=== PATIENT | male | born 1980 | race Caucasian/White ===

== ENCOUNTER 2018-01-19 10:56 | Emergency (ER) | payer BC, OTHER ==
--- NOTE | 2018-01-19 11:28 | EDM.PDOC ---
ED HPI GENERAL MEDICAL PROBLEM - General Chief Complaint: Respiratory Problem Stated Complaint: SOB Time Seen by Provider: 01/19/18 11:14 Source of Information: Reports: Patient History Limitations: Reports: No Limitations - History of Present Illness INITIAL COMMENTS - FREE TEXT/NARRATIVE: 37-year-old male presents for evaluation and treatment of chest tightness, shortness of breath and chest palpitations. First appreciated symptoms about 2 weeks ago. He states over the last week his symptoms have been worsening. He denies any current chest tightness now. He states he's only been getting tightness in his chest and shortness of breath with activity. 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 He is appreciated that when he is getting up and down off the ground that he feels the tightness, palpitations and shortness of breath. He describes hearing his heartbeat in his ears. He states he did feel little lightheaded today. He also feels that his arms and legs feel tired and weak. He denies any recent fevers, cough, ear pain, sore throat, nausea, vomiting, change in stool, dysuria, unintentional weight loss or weight gain, swelling in his legs or pruritus. He states he's had a little bit of a headache. 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 He does appreciate that his symptoms seem to be better at home but he is also not as active at home. He denies any recent travel. No primary care provider. Duration: Week(s): (2), Getting Worse Location: Reports: Chest - Related Data Allergies Allergy/AdvReac Type Severity Reaction Status Date / Time No Known Allergies Allergy Verified 01/19/18 11:14 Home Meds: Home Meds Ferrous Sulfate [Ferosul] 300 mg PO TID #600 ml 01/19/18 [Rx] Past Medical History - Past Health History Medical/Surgical History: Denies Medical/Surgical History Social & Family History - Family History Family Medical History: Noncontributory - Tobacco Use Smoking Status *Q: Never Smoker Second Hand Smoke Exposure: No - Caffeine Use Caffeine Use: Reports: Soda - Recreational Drug Use Recreational Drug Use: No ED ROS GENERAL - Review of Systems Review Of Systems: See Below Constitutional: Reports: Fatigue. Denies: Fever, Chills, Weight Loss, Weight Gain HEENT: Denies: Ear Pain, Throat Pain Respiratory: Reports: Shortness of Breath. Denies: Cough Cardiovascular: Reports: Chest Pain, Dyspnea on Exertion, Lightheadedness, Palpitations. Denies: Edema, Syncope Endocrine: Reports: Fatigue GI/Abdominal: Denies: Abdominal Pain, Diarrhea, Hematochezia, Melena, Nausea, Vomiting : Reports: No Symptoms. Denies: Dysuria Skin: Denies: Pruritis Neurological: Reports: Headache. Denies: Syncope Hematologic/Lymphatic: Denies: Swollen Glands ED EXAM, GENERAL - Physical Exam Exam: See Below Exam Limited By: No Limitations General Appearance: Alert, WD/WN, No Apparent Distress Eye Exam: Bilateral Eye: Normal Inspection Ears: Normal External Exam Ear Exam: Bilateral Ear: Other (TMs obscured by cerumen) Nose: Normal Inspection Throat/Mouth: Normal Inspection, Normal Lips, Normal Oropharynx, Normal Voice, No Airway Compromise Neck: Normal Inspection, Non-Tender, Full Range of Motion. No: Lymphadenopathy (L), Lymphadenopathy (R) Respiratory/Chest: No Respiratory Distress, Lungs Clear, Normal Breath Sounds Cardiovascular: Normal Peripheral Pulses, Regular Rate, Rhythm, No Murmur GI/Abdominal: Normal Bowel Sounds, Soft, Non-Tender Rectal (Males) Exam: Normal Exam, Heme - Stool, Hemorrhoids Neurological: Alert, Oriented, Normal Cognition Psychiatric: Normal Affect, Normal Mood Skin Exam: Warm, Dry, Pallor EKG INTERPRETATION EKG Date: 01/19/18 Time: 11:35 Rhythm: NSR Rate (Beats/Min): 90 Harriet: Normal P-Wave: Present QRS: Normal ST-T: Normal QT: Normal EKG Interpretation Comments: NSR at 90 bpm No acute changes. Reviewed by myself and Dr. Radha Florentino. Course - Vital Signs Last Recorded V/S: Last Vital Signs Temp 37.2 C 01/19/18 16:29 Pulse 85 01/19/18 16:01 Resp 20 01/19/18 16:29 BP 135/68 01/19/18 16:29 Pulse Ox 100 01/19/18 16:29 Orthostatic Blood Pressure [ 146/81 Standing] Orthostatic Blood Pressure [ 128/73 Supine] - Orders/Labs/Meds Labs: Laboratory Tests 01/19/18 01/19/18 01/19/18 Range/Units 11:39 11:39 11:39 WBC 4.43 (4.23-9.07) K/mm3 RBC 2.51 L (4.63-6.08) M/mm3 Hgb 4.4 L* (13.7-17.5) gm/L Hct 16.7 L (40.1-51.0) % MCV 66.5 L (79.0-92.2) fl MCH 17.5 L (25.7-32.2) pg MCHC 26.3 L (32.2-35.5) g/dl RDW Std Deviation 43.1 (35.1-43.9) fL Plt Count 246 (163-337) K/mm3 MPV 9.5 (9.4-12.3) fl Neutrophils % (Manual) 60 (40-60) % Band Neutrophils % 0 (0-10) % Lymphocytes % (Manual) 36 (20-40) % Atypical Lymphs % 0 % Monocytes % (Manual) 2 (2-10) % Eosinophils % (Manual) 0 L (0.8-7.0) % Basophils % (Manual) 2 H (0.2-1.2) Platelet Estimate Adequate Polychromasia 2+ moderate Hypochromasia 2+ moderate Poikilocytosis 1+ slight Anisocytosis 2+ moderate Microcytosis 2+ moderate Target Cells Few Tear Drop Cells Few Rouleaux 1+ slight RBC Morph Comment Not Reportable Sodium 142 (136-145) mEq/L Potassium 4.1 (3.5-5.1) mEq/L Chloride 108 H (98-107) mEq/L Carbon Dioxide 24 (21-32) mEq/L Anion Gap 14.1 (5-15) BUN 18 (7-18) mg/dL Creatinine 0.9 (0.7-1.3) mg/dL Est Cr Clr Drug Dosing 123.35 mL/min Estimated GFR (MDRD) > 60 (>60) mL/min BUN/Creatinine Ratio 20.0 H (14-18) Glucose 102 (74-106) mg/dL Calcium 9.1 (8.5-10.1) mg/dL Magnesium 1.9 (1.8-2.4) mg/dl Iron (65-175) ug/dL TIBC (100-400) ug/dL % Saturation (20-55) % Transferrin (202-364) mg/dL Ferritin (26-388) ng/ml Total Bilirubin 0.3 (0.2-1.0) mg/dL AST 15 (15-37) U/L ALT 16 (16-63) U/L Alkaline Phosphatase 67 (46-116) U/L Troponin I < 0.017 (0.00-0.056) ng/mL Total Protein 6.8 (6.4-8.2) g/dl Albumin 4.1 (3.4-5.0) g/dl Globulin 2.7 gm/dL Albumin/Globulin Ratio 1.5 (1-2) Vitamin B12 (193-986) pg/ml Folate (8.6-58.9) ng/mL TSH 3rd Generation 2.839 (0.358-3.74) uIU/mL Urine Color (Yellow) Urine Appearance (Clear) Urine pH (5.0-8.0) Ur Specific [place] (1.005-1.030) Urine Protein (Negative) Urine Glucose (UA) (Negative) Urine Ketones (Negative) Urine Occult Blood (Negative) Urine Nitrite (Negative) Urine Bilirubin (Negative) Urine Urobilinogen (0.2-1.0) Ur Leukocyte Esterase (Negative) Urine RBC (0-5) /hpf Urine WBC (0-5) /hpf Ur Epithelial Cells (0-5) /hpf Urine Bacteria (FEW) /hpf Urine Mucus (FEW) /hpf Blood Type B POSITIVE Gel Antibody Screen Negative Crossmatch See Detail 01/19/18 01/19/18 01/19/18 Range/Units 11:39 11:39 12:55 WBC (4.23-9.07) K/mm3 RBC (4.63-6.08) M/mm3 Hgb (13.7-17.5) gm/L Hct (40.1-51.0) % MCV (79.0-92.2) fl MCH (25.7-32.2) pg MCHC (32.2-35.5) g/dl RDW Std Deviation (35.1-43.9) fL Plt Count (163-337) K/mm3 MPV (9.4-12.3) fl Neutrophils % (Manual) (40-60) % Band Neutrophils % (0-10) % Lymphocytes % (Manual) (20-40) % Atypical Lymphs % % Monocytes % (Manual) (2-10) % Eosinophils % (Manual) (0.8-7.0) % Basophils % (Manual) (0.2-1.2) Platelet Estimate Polychromasia Hypochromasia Poikilocytosis Anisocytosis Microcytosis Target Cells Tear Drop Cells Rouleaux RBC Morph Comment Sodium (136-145) mEq/L Potassium (3.5-5.1) mEq/L Chloride (98-107) mEq/L Carbon Dioxide (21-32) mEq/L Anion Gap (5-15) BUN (7-18) mg/dL Creatinine (0.7-1.3) mg/dL Est Cr Clr Drug Dosing mL/min Estimated GFR (MDRD) (>60) mL/min BUN/Creatinine Ratio (14-18) Glucose (74-106) mg/dL Calcium (8.5-10.1) mg/dL Magnesium (1.8-2.4) mg/dl Iron 13 L (65-175) ug/dL TIBC 420 H (100-400) ug/dL % Saturation 3 L (20-55) % Transferrin 336 (202-364) mg/dL Ferritin 2 L (26-388) ng/ml Total Bilirubin (0.2-1.0) mg/dL AST (15-37) U/L ALT (16-63) U/L Alkaline Phosphatase (46-116) U/L Troponin I (0.00-0.056) ng/mL Total Protein (6.4-8.2) g/dl Albumin (3.4-5.0) g/dl Globulin gm/dL Albumin/Globulin Ratio (1-2) Vitamin B12 356 (193-986) pg/ml Folate 15.6 (8.6-58.9) ng/mL TSH 3rd Generation (0.358-3.74) uIU/mL Urine Color Yellow (Yellow) Urine Appearance Clear (Clear) Urine pH 5.5 (5.0-8.0) Ur Specific [place] 1.025 (1.005-1.030) Urine Protein Trace H (Negative) Urine Glucose (UA) Negative (Negative) Urine Ketones Negative (Negative) Urine Occult Blood Negative (Negative) Urine Nitrite Negative (Negative) Urine Bilirubin Negative (Negative) Urine Urobilinogen 0.2 (0.2-1.0) Ur Leukocyte Esterase Negative (Negative) Urine RBC Not seen (0-5) /hpf Urine WBC 0-5 (0-5) /hpf Ur Epithelial Cells 0-5 (0-5) /hpf Urine Bacteria Few (FEW) /hpf Urine Mucus Many H (FEW) /hpf Blood Type Gel Antibody Screen Crossmatch Meds: Medications Discontinued Medications Generic Name Dose Route Start Last Admin Trade Name Romero PRN Reason Stop Dose Admin Sodium Chloride 100 mls @ 5 mls/hr 01/19/18 12:44 01/19/18 12:54 Normal Saline IV 01/20/18 08:43 5 mls/hr NOW STA Administration Sodium Chloride 100 mls @ 5 mls/hr 01/19/18 15:31 01/19/18 15:59 Normal Saline IV 01/20/18 11:30 5 mls/hr NOW STA Administration Sodium Chloride 10 ml 01/19/18 11:49 01/19/18 11:55 Saline Flush FLUSH 10 ml ASDIRECTED PRN Administration Keep Vein Open - Radiology Interpretation Free Text/Narrative:: Chest: Two views of the chest were obtained. Comparison: No prior chest x-ray. Heart size at the upper limits of normal. Mild tortuosity of the thoracic aorta is seen. Lungs are clear with no acute parenchymal densities. Bony structures are unremarkable. Impression: 1. Heart size at the upper limits of normal. Nothing acute is appreciated on two-view chest x-ray. - Re-Assessments/Exams Free Text/Narrative Re-Assessment/Exam: 01/19/18 11:56 Patient is severely anemic with a hgb of 4.4. 2 units blood ordered. Consent for transfusion obtained. 01/19/18 16:31 Checked on the patient, he is resting comfortably at this time and just started his second unit of blood. 01/19/18 19:45 I reviewed the labs, ekg and imaging with the patient. Patient has finished his second unit of blood and feels greatly improved. He also has more color back to his face. Case discussed with Dr. Radha Florentino. Agrees with the 2 units as this is likely chronic. Given that this is likely chronic any feels better after the 2 units. I will discharge him home with close follow-up in the clinic. I'll start him on some iron supplementation. He is instructed to return to the ER this weekend if his symptoms change or worsen as he might in the future require more blood transfusions. Discharge instructions as documented. Departure - Departure Time of Disposition: 19:45 Disposition: Home, Self-Care 01 Condition: Fair Clinical Impression: Iron deficiency anemia - Discharge Information Prescriptions: Ferrous Sulfate [Ferosul] 300 mg PO TID #600 ml Instructions: Anemia Referrals: PCP,None [Primary Care Provider] - Zeke Nelson [Physician] - Forms: ED Department Discharge Additional Instructions: Take the iron supplementation as prescribed. Take 6.8 to Flynn or 300 mg of iron 3 times a day. Take this with vitamin C containing foods to help increase absorption. Rest. Follow-up with family medicine on Monday or Monday of next week to recheck your symptoms. Recommend Dr. Shweta Cano or Dr. Evans at the [facility]. Call [phone] schedule with a provider there. Please return to the ER if your symptoms change or worsen.
[2018-01-19] MEDS ORDERED: Sodium Chloride 0.9% 10 ML Syringe FLUSH PRN (11:49)
[2018-01-19] MEDS ORDERED: Sodium Chloride 0.9% 100 ML IV STA ×2 (12:44→15:31)
--- NOTE | 2018-01-19 13:05 | CR ---
Chest: Two views of the chest were obtained. Comparison: No prior chest x-ray. Heart size at the upper limits of normal. Mild tortuosity of the thoracic aorta is seen. Lungs are clear with no acute parenchymal densities. Bony structures are unremarkable. Impression: 1. Heart size at the upper limits of normal. Nothing acute is appreciated on two-view chest x-ray. Diagnostic code #2
[2018-01-19 16:29] VITALS: BP 135/68
== END 2018-01-19 20:30 | disposition home or self-care (01) ==
LOC: JD.ED 10:56
DX: D50.9 Iron deficiency anemia, unspecified (principal)
CPT/HCPCS: 36415; 36430; 71046; 80053; 81001; 82607; 82728; 82746; 83540; 83735; 84443; 84466; 84484; 85025; 86850; 86900; 86901; 86922; 93005; 99285; J7030; J7050; P9016; 93010; 99284

== ENCOUNTER 2018-02-21 07:57 | Day surgery (SDC) | payer BC ==
[~2018-02-21 07:57] MED LIST: Lactated Ringers 1,000 ML IV SCH; Lidocaine 1%/Sod Bicarbonate in NS 8.4% 1 ML Syringe IDERM PRN; Sodium Chloride 0.9% 10 ML Syringe FLUSH PRN
--- NOTE | 2018-02-21 08:32 | PCM.PREANE ---
Preanesthetic Assessment - Anesthesia/Transfusion/Family Hx Anesthesia History: Prior Anesthesia Without Reaction Family History of Anesthesia Reaction: No Transfusion History: Prior Transfusion Without Reaction - Review of Systems General: No Symptoms, Other (anemia of unknown origin, Hemoglobin 8.1 on 02/06/18 ) Pulmonary: Shortness of Breath (with hemoglobin of 4) Cardiovascular: No Symptoms Gastrointestinal: Other (h pylori) Neurological: No Symptoms - Physical Assessment NPO Status Date: 02/20/18 NPO Status Time: 21:00 Pulse: 81 O2 Sat by Pulse Oximetry: 100 Respiratory Rate: 16 Blood Pressure: 146/80 Temperature: 36.7 C Vital Signs: Last Vital Signs Temp 36.7 C 02/21/18 08:05 Pulse 81 02/21/18 08:05 Resp 16 02/21/18 08:05 BP 146/80 H 02/21/18 08:05 Pulse Ox 100 02/21/18 08:05 Height: 1.83 m Weight: 107.955 kg Mental Status: Alert & Oriented x3 Airway Class: Mallampati = 2 Dentition: Reports: Normal Dentition Thyro-Mental Finger Breadths: 3 Mouth Opening Finger Breadths: 3 ROM/Head Extension: Full Lungs: Clear to Auscultation, Normal Respiratory Effort Cardiovascular: Regular Rate, Regular Rhythm - Allergies Allergies/Adverse Reactions: Allergies Allergy/AdvReac Type Severity Reaction Status Date / Time No Known Allergies Allergy Verified 02/20/18 16:29 - Blood Blood Available: No Product(s) Available: None - Anesthesia Plan Pre-Op Medication Ordered: None - Acknowledgements Anesthesia Type Planned: MAC Pt an Appropriate Candidate for the Planned Anesthesia: Yes Alternatives and Risks of Anesthesia Discussed w Pt/Guardian: Yes Pt/Guardian Understands and Agrees with Anesthesia Plan: Yes PreAnesthesia Questionnaire - Past Health History Medical/Surgical History: Denies Medical/Surgical History HEENT History: Reports: Impaired Vision Cardiovascular History: Reports: None Respiratory History: Reports: None Gastrointestinal History: Reports: Helicobacter Pylori Genitourinary History: Reports: None [employer] IN[employer] RELATIONS History: Reports: None Musculoskeletal History: Reports: Back Pain, Chronic Neurological History: Reports: None Psychiatric History: Reports: None Endocrine/Metabolic History: Reports: None Hematologic History: Reports: Anemia Immunologic History: Reports: None Oncologic (Cancer) History: Reports: None Dermatologic History: Reports: None - Past Surgical History Head Surgeries/Procedures: Reports: None Cardiovascular Surgical History: Reports: None Respiratory Surgical History: Reports: None GI Surgical History: Reports: None Female Surgical History: Reports: None Male Surgical History: Reports: None Endocrine Surgical History: Reports: None Neurological Surgical History: Reports: None Musculoskeletal Surgical History: Reports: None Oncologic Surgical History: Reports: None Dermatological Surgical History: Reports: None - SUBSTANCE USE Smoking Status *Q: Never Smoker Second Hand Smoke Exposure: No Recreational Drug Use History: No - HOME MEDS Home Medications: Home Meds Ferrous Sulfate [Ferosul] 300 mg PO TID #600 ml 01/19/18 [Rx] Omeprazole 40 mg PO DAILY 02/20/18 [History] - CURRENT (IN HOUSE) MEDS Current Meds: Current Medications Lactated Ringer's (Ringers, Lactated) 1,000 mls @ 125 mls/hr IV ASDIRECTED HIEN Stop: 02/21/18 23:00 Lidocaine/Sodium Bicarbonate (Buffered Lidocaine 1% In Ns 8.4%) 0.25 ml IDERM ONETIME PRN PRN Reason: Prior to IV Start Stop: 02/21/18 18:00 Sodium Chloride (Saline Flush) 10 ml FLUSH ASDIRECTED PRN PRN Reason: Keep Vein Open Stop: 02/21/18 18:00
[2018-02-21] MEDS ORDERED: Propofol 200 MG/20 ML SDV ONE ×2 (08:51→09:11)
[2018-02-21] MEDS ORDERED: fentaNYL 100 MCG/2 ML SDV ONE (08:51)
[2018-02-21] MEDS ORDERED: Midazolam 1 MG/ML 2 ML SDV ONE (08:51)
--- NOTE | 2018-02-21 09:33 | PCM.OPNOTE ---
- General Post-Op/Procedure Note Date of Surgery/Procedure: 02/21/18 Operative Procedure(s): 1. Esophagogastroduodenoscopy with hot snare antral polypectomy. 2. Colonoscopy with cecal biopsy Findings: 1. Pedunculated 1 cm antral polyp otherwise normal upper endoscopy 2. Endoscopically normal colonoscopy 3. Large 3 column prolapsed uncomplicated hemorrhoids Pre Op Diagnosis: Anemia of unknown etiology Post-Op Diagnosis: 1. Antral polyp. 2. Mixed 3 column prolapse unconjugated hemorrhoids Anesthesia Technique: MAC, Moderate Sedation Primary Surgeon: Elvin Cararsquillo Pathology: Antral polyp and cecal biopsy EBL in mLs: 0 Complications: None Condition: Good Free Text/Narrative:: After adequate IV sedation and analgesia was obtained the patient was placed on his left side with monitoring. Through a bite-block lubricated upper endoscope was easily inserted into the esophagus and advanced to the stomach where air was given. There was a large polyp seen in the antrum. I passed the scope into the duodenum. The second and first parts were normal. The scope was withdrawn to the incisure and there was no hiatal hernia seen in the retroflexed view. The fundic and cardiac regions were normal. The body of the stomach was normal. I removed the polyp with a hot snare and retrieved the specimen. The polypectomy site was hemostatic. The scope was withdrawn to the GE junction which was endoscopically normal. The body esophagus was grossly normal. Photographs were taken for the patient and for the medical record. Perianal inspection revealed large prolapsed mixed hemorrhoidal columns. Rectal examination was remarkable for the hemorrhoids and a normal prostate. A lubricated colonoscope was inserted into the rectum and advanced to the cecum without difficulty. The bowel preparation was excellent. A cecal biopsy was taken randomly for histologic review. There were no AV malformations seen throughout the colonoscopy. The right colon transverse descending and sigmoid colons were endoscopically normal. The rectum was normal in both views. Photographs were taken for the record. Air was removed as I finished the procedure which he tolerated well.
--- NOTE | 2018-02-21 09:33 | PCM48HPAN ---
Post Anesthesia Note - EVALUATION WITHIN 48HRS OF ANESTHETIC Vital Signs in Normal Range: Yes Patient Participated in Evaluation: Yes Respiratory Function Stable: Yes Airway Patent: Yes Cardiovascular Function Stable: Yes Hydration Status Stable: Yes Pain Control Satisfactory: Yes Nausea and Vomiting Control Satisfactory: Yes Mental Status Recovered: Yes Pulse Rate: 80 SaO2: 97 Resp Rate: 16 Temperature: 36.7 C Blood Pressure: 124/76
[2018-02-21 09:34] VITALS: BP 124/76
== END 2018-02-21 10:18 | disposition home or self-care (01) ==
LOC: JD.SDS 07:57
PROVIDERS: ATTEND Surgery
DX: D50.9 Iron deficiency anemia, unspecified (principal); K31.7 Polyp of stomach and duodenum; K64.8 Other hemorrhoids; K29.50 Unspecified chronic gastritis without bleeding; K31.89 Other diseases of stomach and duodenum; B96.81 Helicobacter pylori [H. pylori] as the cause of diseases classified elsewhere; K62.5 Hemorrhage of anus and rectum; Z79.899 Other long term (current) drug therapy
CPT/HCPCS: 36415; 43251; 45380; 85014; 85018; J2250; J3010; J7120; 00813; J2704